=== PATIENT | male | born 1975 | race African-American/Black ===

== ENCOUNTER 2023-12-13 08:36 | Emergency (ER) | payer MEDICAID ==
[~2023-12-13] VITALS: Ht 182.9 cm; Wt 82.6 kg
[2023-12-13 09:10] VITALS: BP 123/77; PULSE 53; RESP 18; TEMP 98.8; O2SAT 98
[2023-12-13] MEDS ORDERED: IBUP-1456 PO (09:25)
[2023-12-13] MEDS ORDERED: BACL10TA PO (09:25)
[2023-12-13] MEDS: CYCLOBENZAPRINE HCL 10 MG TAB PO ONE (09:41)
[2023-12-13] MEDS: KETOROLAC TROMETH 60MG/2ML VIAL IM ONE (09:41)
== END 2023-12-13 09:53 | disposition home or self-care (01) ==
LOC: ER 08:36
DX: M62.830 Muscle spasm of back (principal); J45.909 Unspecified asthma, uncomplicated
CPT/HCPCS: 96372; 99283; J1885